=== PATIENT | female | born 2000 | race American Indian/Alaskan Native ===

== ENCOUNTER 2023-12-28 14:53 | Emergency (ER) | payer MEDICAID ==
[2023-12-28 15:31] LABS: AMPHETAMINES SCREEN, URINE PRESUMPTIVE POSITIVE (NEGATIVE); BARBITURATE SCREEN,URINE NEGATIVE (NEGATIVE); BENZODIAZEPINES SCREEN,URINE NEGATIVE (NEGATIVE); METHADONE SCREEN, URINE NEGATIVE (NEGATIVE); METHAMPHETAMINES SCREEN, URINE PRESUMPTIVE POSITIVE (NEGATIVE); OXYCODONE SCREEN,URINE NEGATIVE (NEGATIVE); PROPOXYPHENE SCREEN,URINE NEGATIVE (NEGATIVE); THC SCREEN,URINE 50 NG/ML PRESUMPTIVE POSITIVE (NEGATIVE)
[2023-12-30 20:41] LABS: FENTANYL, URN, SCREEN PresumptivePOS ng/mL (Cutoff 1)
[2024-01-01 16:18] LABS: FENTANYL, URN, QUANT 2.7 ng/mL; NORFENTANYL, URN, QUANT 518.8 ng/mL
== END 2023-12-28 16:11 ==
LOC: JP.ED 14:53
DX: F19.10 Other psychoactive substance abuse, uncomplicated (principal); F17.210 Nicotine dependence, cigarettes, uncomplicated; F10.20 Alcohol dependence, uncomplicated
CPT/HCPCS: 36415; 80305-QW; 80307; 81025; 99284; G0480